=== PATIENT | female | born 1980 | race Caucasian/White ===

== ENCOUNTER 2017-04-04 20:16 | Emergency (ER) | payer MEDICAID ==
[~2017-04-04] VITALS: Ht 162.6 cm; Wt 103.2 kg
[~2017-04-04 20:16] MED LIST: ALBUTEROL0.09 MG/A1 IH; ALPRAZOLAM; AUGMENTIN 875 M1 TAB PO; BACTRIM DS 8001 TAB PO; CEPHALEXIN500 M1 PO; CHANTIX0.5 MG PO; CHANTIX1 MG PO; COMBIVENT INH14.7 GM IH; LEVAQUIN 5500 MG/TAB PO; LORTAB 5/500 501 TAB PO; LORTAB 7.5/5001 TAB; LORTAB 7.5/5001 TAB PO; MVI; NEXIUM40 MG PO; NORCO 325 MG-51 TAB; NORCO 325 MG-51 TAB PO; NORMODYNE100 MG PO; NORMODYNE200 MG PO; NOVOLOG100 U/ML IV; PERCOCET 325 MG1 TA2 PO; PERCOCET 325 MG1 TAB PO; PERCOCET 5/321 UDTAB PO; PERCOCET 650 MG1 TAB PO; PHENERGAN 25 TA25 MG PO; PRENATAL VITAMI1 TA5 PO; PREVACID 30MG30 MG PO; TYLENOL #3 301 UDTAB PO; TYLENOL 500MG500 MG PO; TYLENOL/CODEINE1 ML PO; ZANTAC 150150 MG PO; ZITHROMAX TRI-500 MG PO
[2017-04-04 20:18] VITALS: TEMP 99
[2017-04-04 20:56] LABS: COLLECTION METHOD CLEAN CATCH
[2017-04-04 20:58] LABS: BASO # 0.1 (0.0-0.2); BASO % 0.5 % (0.0-2.0); EOS # 0.3 (0.0-0.7); EOS % 2.4 % (0-4.0); GRAN # 6.2 (1.4-6.5); GRAN % 54.6 % (42.2-75.2); HEMOGLOBIN 13.3 g/dl (12.5-16.0); LYMPH # 3.9 (1.2-3.4); LYMPH % 34.4 % (20.0-51.0); MEAN CELL VOLUME 86 fl (80.0-100.0); MEAN CORPUSCULAR HEMOGLOBIN 29 pg (27.0-31.0); MEAN CORPUSCULAR HGB CONC 33 g/dl (33.0-37.0); MEAN PLATELET VOLUME 8.7 fl (7.4-10.4); MONO # 0.9 (0.1-0.6); MONO % 7.7 % (1.7-9.3); PLATELET COUNT 421 K/mm3 (130-400); RED BLOOD COUNT 4.67 M/mm3 (4.10-5.30); REDCELL DISTRIBUTION WIDTH-CV 13.1 % (11.5-14.5)
[2017-04-04 21:09] LABS: MUCOUS Present /lpf; PH 6 (5-8); SQUAMOUS EPITHELIAL 0-2 /hpf; URINE APPEARANCE Hazy; URINE BACTERIA Many /hpf; URINE BILIRUBIN Negative (NEGATIVE); URINE BLOOD 1+ (NEGATIVE); URINE COLOR Yellow; URINE GLUCOSE Negative (NEGATIVE); URINE KETONE Negative (NEGATIVE); URINE LEUKOCYTE ESTERASE Negative (NEGATIVE); URINE NITRATE Positive (NEGATIVE); URINE PROTEIN(semi-quant) Negative (NEGATIVE); URINE RBC 0-2 /hpf; URINE UROBILINOGEN Negative (NEGATIVE)
[2017-04-04 21:10] LABS: ALBUMIN 4.1 gm/dL (3.5-5.0); BILIRUBIN,TOTAL 0.2 mg/dL (0.0-1.0); CALCIUM 9.3 mg/dL (8.4-10.2); CREATININE, serum 1.03 mg/dL (0.52-1.25); POTASSIUM 3.9 mmol/L (3.4-5.0); TOTAL PROTEIN 7.2 gm/dL (6.4-8.2)
[2017-04-04] MEDS ORDERED: NORCO 325 MG-51 TAB PO (22:15)
[2017-04-04] MEDS ORDERED: CEFTIN 250250 MG/TAB PO (22:15)
[2017-04-04 22:22] VITALS: BP 156/87; PULSE 80
== END 2017-04-04 22:34 | disposition home or self-care (01) ==
LOC: COL.ER 20:16
PROVIDERS: Nurse Practitioner
DX: N12 Tubulo-interstitial nephritis, not specified as acute or chronic (principal); G43.909 Migraine, unspecified, not intractable, without status migrainosus; I10 Essential (primary) hypertension; F17.210 Nicotine dependence, cigarettes, uncomplicated; Z90.49 Acquired absence of other specified parts of digestive tract; Z98.51 Tubal ligation status; Z87.442 Personal history of urinary calculi
CPT/HCPCS: J1170; J1885; J2405; J7030

== ENCOUNTER 2017-08-10 10:34 | Emergency (ER) | payer MEDICAID ==
[~2017-08-10] VITALS: Ht 167.6 cm; Wt 120.5 kg
[~2017-08-10 10:34] MED LIST changes: +CEFTIN 250250 MG/TAB PO
[2017-08-10 10:43] VITALS: TEMP 98.1
[2017-08-10 11:44] LABS: COLLECTION METHOD CLEAN CATCH
[2017-08-10 11:54] LABS: MUCOUS Present /lpf; PH 5 (5-8); SQUAMOUS EPITHELIAL 0-2 /hpf; URINE APPEARANCE Clear; URINE BACTERIA None Seen /hpf; URINE BILIRUBIN Negative (NEGATIVE); URINE BLOOD 3+ (NEGATIVE); URINE COLOR Straw; URINE GLUCOSE Negative (NEGATIVE); URINE KETONE Negative (NEGATIVE); URINE LEUKOCYTE ESTERASE Negative (NEGATIVE); URINE NITRATE Negative (NEGATIVE); URINE PROTEIN(semi-quant) Negative (NEGATIVE); URINE RBC 0-2 /hpf; URINE UROBILINOGEN Negative (NEGATIVE)
[2017-08-10] MEDS ORDERED: NORCO 325 MG-51 TAB PO (12:29)
[2017-08-10 12:54] VITALS: BP 134/82; PULSE 83
== END 2017-08-10 14:04 | disposition home or self-care (01) ==
LOC: COL.ER 10:34
PROVIDERS: Physician Assistant
DX: S20.212A Contusion of left front wall of thorax, initial encounter (principal); S39.012A Strain of muscle, fascia and tendon of lower back, initial encounter; S96.912A Strain of unspecified muscle and tendon at ankle and foot level, left foot, initial encounter; F32.9 Major depressive disorder, single episode, unspecified; F41.9 Anxiety disorder, unspecified; F43.10 Post-traumatic stress disorder, unspecified; F17.210 Nicotine dependence, cigarettes, uncomplicated; F12.90 Cannabis use, unspecified, uncomplicated; Z98.51 Tubal ligation status; Z98.890 Other specified postprocedural states; W18.39XA Other fall on same level, initial encounter
CPT/HCPCS: J1885

== ENCOUNTER 2017-11-02 18:21 | Emergency (ER) | payer SELFPAY ==
[~2017-11-02] VITALS: Ht 162.6 cm; Wt 113.6 kg
[2017-11-02 18:28] VITALS: TEMP 99
[2017-11-02 19:00] LABS: BASO # 0.1 (0.0-0.2); BASO % 0.6 % (0.0-2.0); EOS # 0.5 (0.0-0.7); EOS % 4.6 % (0-4.0); GRAN # 6.2 (1.4-6.5); HEMATOCRIT 37.8 % (37.0-47.0); HEMOGLOBIN 12.5 g/dl (12.5-16.0); LYMPH # 2.9 (1.2-3.4); LYMPH % 27.3 % (20.0-51.0); MEAN CELL VOLUME 85 fl (80.0-100.0); MEAN CORPUSCULAR HEMOGLOBIN 28 pg (27.0-31.0); MEAN CORPUSCULAR HGB CONC 33 g/dl (33.0-37.0); MEAN PLATELET VOLUME 8.9 fl (7.4-10.4); MONO # 0.9 (0.1-0.6); MONO % 8.1 % (1.7-9.3); PLATELET COUNT 393 K/mm3 (130-400); RED BLOOD COUNT 4.47 M/mm3 (4.10-5.30); REDCELL DISTRIBUTION WIDTH-CV 13.4 % (11.5-14.5)
[2017-11-02 19:14] LABS: ALBUMIN 4.2 gm/dL (3.5-5.0); BILIRUBIN,TOTAL 0.3 mg/dL (0.0-1.0); C-REACTIVE PROTEIN 0.8 mg/dL (0.0-0.9); CREATININE, serum 0.79 mg/dL (0.52-1.25); POTASSIUM 3.6 mmol/L (3.4-5.0); TOTAL PROTEIN 7.5 gm/dL (6.4-8.2)
[2017-11-02] MEDS ORDERED: BACTRIM DS 8001 TAB PO (21:30)
[2017-11-02] MEDS ORDERED: CEPHALEXIN500 M1 PO (21:30)
[2017-11-02 22:23] VITALS: BP 156/77; PULSE 92
== END 2017-11-02 21:50 | disposition home or self-care (01) ==
LOC: COL.ER 18:21
PROVIDERS: Emergency Medicine
DX: R51 Headache (principal); L03.211 Cellulitis of face; L02.01 Cutaneous abscess of face; F17.210 Nicotine dependence, cigarettes, uncomplicated; F12.90 Cannabis use, unspecified, uncomplicated; Z90.49 Acquired absence of other specified parts of digestive tract
CPT/HCPCS: J1170; J1885; J2405; J7030

== ENCOUNTER 2018-02-01 23:59 | Emergency (ER) | payer MEDICAID ==
[~2018-02-01] VITALS: Ht 162.6 cm; Wt 104.5 kg
[2018-02-02 00:05] VITALS: TEMP 98.5
[2018-02-02 00:54] LABS: BASO # 0.1 (0.0-0.2); BASO % 0.3 % (0.0-2.0); EOS # 0.2 (0.0-0.7); EOS % 0.9 % (0-4.0); GRAN # 11.5 (1.4-6.5); HEMATOCRIT 41.3 % (37.0-47.0); HEMOGLOBIN 14.1 g/dl (12.5-16.0); LYMPH # 3.7 (1.2-3.4); LYMPH % 22.3 % (20.0-51.0); MEAN CELL VOLUME 84 fl (80.0-100.0); MEAN CORPUSCULAR HEMOGLOBIN 29 pg (27.0-31.0); MEAN CORPUSCULAR HGB CONC 34 g/dl (33.0-37.0); MEAN PLATELET VOLUME 8.9 fl (7.4-10.4); MONO % 6.1 % (1.7-9.3); PLATELET COUNT 380 K/mm3 (130-400); REDCELL DISTRIBUTION WIDTH-CV 13.1 % (11.5-14.5)
[2018-02-02 01:07] LABS: ALANINE AMINOTRANSFERASE 30 U/L (9-52); ALBUMIN 4.3 gm/dL (3.5-5.0); ALKALINE PHOSPHATASE 94 U/L (50-136); ANION GAP 8 mmol/L (7-16); AST,SGOT 21 U/L (15-37); BILIRUBIN,TOTAL 0.2 mg/dL (0.0-1.0); BLOOD UREA NITROGEN 17 mg/dL (7-17); CALCIUM 9.8 mg/dL (8.4-10.2); CARBON DIOXIDE 26 mmol/L (22-30); CHLORIDE 107 mmol/L (98-107); CREATININE, serum 0.82 mg/dL (0.52-1.25); GLUCOSE 111 mg/dL (74-106); LIPASE 94 U/L (23-300); MAGNESIUM 1.8 mg/dL (1.6-2.3); PHOSPHOROUS 4.4 mg/dL (2.5-4.5); POTASSIUM 3.9 mmol/L (3.4-5.0); SODIUM 141 mmol/L (137-145); TOTAL PROTEIN 7.6 gm/dL (6.4-8.2)
[2018-02-02 01:18] LABS: TROPONIN-I < 0.012 ng/mL (0.000-0.034)
[2018-02-02 01:21] LABS: COLLECTION METHOD CLEAN CATCH
[2018-02-02 01:30] LABS: MUCOUS Present /lpf; PH 5 (5-8); URINE APPEARANCE Hazy; URINE BACTERIA None Seen /hpf; URINE BILIRUBIN Negative (NEGATIVE); URINE BLOOD 2+ (NEGATIVE); URINE COLOR Yellow; URINE GLUCOSE Negative (NEGATIVE); URINE KETONE Negative (NEGATIVE); URINE LEUKOCYTE ESTERASE Trace (NEGATIVE); URINE NITRATE Negative (NEGATIVE); URINE PROTEIN(semi-quant) Negative (NEGATIVE)
[2018-02-02] MEDS ORDERED: FLEXERIL 1010 MG/TAB PO (03:11)
[2018-02-02] MEDS ORDERED: DOXYCYCLINE 10100 MG PO (03:11)
[2018-02-02 03:28] VITALS: BP 101/55; PULSE 92
== END 2018-02-02 03:37 | disposition home or self-care (01) ==
LOC: COL.ER 23:59
PROVIDERS: Emergency Medicine
DX: J40 Bronchitis, not specified as acute or chronic (principal); R07.89 Other chest pain; Z90.49 Acquired absence of other specified parts of digestive tract; F17.210 Nicotine dependence, cigarettes, uncomplicated
CPT/HCPCS: J1100; J1170; J1885; J7030; Q9967

== ENCOUNTER 2018-09-03 21:43 | Emergency (ER) | payer MEDICAID ==
[~2018-09-03] VITALS: Ht 162.6 cm; Wt 107.3 kg
[~2018-09-03 21:43] MED LIST changes: +DOXYCYCLINE 10100 MG PO; +FLEXERIL 1010 MG/TAB PO
[2018-09-03 21:47] VITALS: TEMP 98.5
[2018-09-03] MEDS ORDERED: NAPROSYN500 MG PO (23:45)
[2018-09-04 00:07] VITALS: BP 155/72; PULSE 83
== END 2018-09-04 00:07 | disposition home or self-care (01) ==
LOC: COL.ER 21:43
DX: M65.841 Other synovitis and tenosynovitis, right hand (principal); I10 Essential (primary) hypertension; F17.210 Nicotine dependence, cigarettes, uncomplicated
CPT/HCPCS: J1885

== ENCOUNTER 2018-10-12 12:05 | Day surgery (SDC) | payer MEDICAID ==
[~2018-10-12] VITALS: Ht 162.7 cm; Wt 180.3 kg
[2018-10-12] VITALS (9 sets, daily range): BP systolic 130–160; BP diastolic 70–95; PULSE 72–85; TEMP 98
[~2018-10-12 12:05] MED LIST changes: +NAPROSYN500 MG PO
[2018-10-12 12:37] LABS: HEMOGLOBIN 12.3 g/dl (12.5-16.0); MEAN CELL VOLUME 85 fl (80.0-100.0); MEAN CORPUSCULAR HEMOGLOBIN 29 pg (27.0-31.0); MEAN CORPUSCULAR HGB CONC 34 g/dl (33.0-37.0); MEAN PLATELET VOLUME 8.8 fl (7.4-10.4); PLATELET COUNT 358 K/mm3 (130-400); RED BLOOD COUNT 4.27 M/mm3 (4.10-5.30); REDCELL DISTRIBUTION WIDTH-CV 12.7 % (11.5-14.5)
[2018-10-12 12:41] LABS: HEMATOCRIT 36.1 % (37.0-47.0)
[2018-10-12 12:43] LABS: PROTHROMBIN TIME 11.5 SECONDS (9.7-12.8)
[2018-10-12 12:47] LABS: CALCIUM 9.1 mg/dL (8.4-10.2); CREATININE, serum 0.84 (0.52-1.25); POTASSIUM 3.7 mmol/L (3.4-5.0)
--- NOTE | 2018-10-12 13:13 | NUR ---
SEE MERGE DOCUMENTATION FOR MEDICATION ADMINISTRATION TIMES AND INTRA/POST PROCEDURE SEDATION ASSESSMENTS. PT AND PT STATE NO INTERVENTION TO BE DONE TODAY REGARDLESS OF FINDINGS. WISHES TO BE NOTIFIED IMMEDIATELY. WILL RELAY THIS TO .
--- NOTE | 2018-10-12 14:26 | NUR ---
Back from [employer]. Drowsy but oriented. VSS. Right Tband 13 cc air , good pulses and cap refill < 3 secs. Family bedside
[2018-10-12] MEDS ORDERED: TOPROL XL 50MG50 MG PO (14:53)
[2018-10-12] MEDS ORDERED: ASPIRIN E.C. 8181 MG PO (14:56)
--- NOTE | 2018-10-12 16:42 | NUR ---
Ambulated to bathroom with steady gait. Deflated Tband of 13 cc air over 20 minutes. Pressure dressing applied. IV discontinued intact.
--- NOTE | 2018-10-12 17:06 | NUR ---
Discharge instructions given. Transferred to private car by simon
== END 2018-10-12 17:07 | disposition home or self-care (01) ==
LOC: COL.CAR 12:05
PROVIDERS: Internal Medicine Cardiovascular Disease
DX: R07.89 Other chest pain (principal); I25.110 Atherosclerotic heart disease of native coronary artery with unstable angina pectoris; I35.1 Nonrheumatic aortic (valve) insufficiency; J45.909 Unspecified asthma, uncomplicated; F41.9 Anxiety disorder, unspecified; F32.9 Major depressive disorder, single episode, unspecified; Z98.890 Other specified postprocedural states; Z86.32 Personal history of gestational diabetes; I10 Essential (primary) hypertension; Z86.14 Personal history of Methicillin resistant Staphylococcus aureus infection; Z86.73 Personal history of transient ischemic attack (TIA), and cerebral infarction without residual deficits; Z90.49 Acquired absence of other specified parts of digestive tract; F43.10 Post-traumatic stress disorder, unspecified; Z98.51 Tubal ligation status; F17.210 Nicotine dependence, cigarettes, uncomplicated; Z79.899 Other long term (current) drug therapy; Z87.74 Personal history of (corrected) congenital malformations of heart and circulatory system; Z83.3 Family history of diabetes mellitus; Z82.49 Family history of ischemic heart disease and other diseases of the circulatory system; Z82.61 Family history of arthritis; R01.1 Cardiac murmur, unspecified
CPT/HCPCS: C1769; J1644; J2250; J3010; Q9967

== ENCOUNTER 2018-12-02 08:57 | Emergency (ER) | payer SELFPAY ==
[~2018-12-02] VITALS: Ht 162.6 cm; Wt 104.5 kg
[~2018-12-02 08:57] MED LIST changes: +ASPIRIN E.C. 8181 MG PO; +TOPROL XL 50MG50 MG PO
[2018-12-02 09:04] VITALS: TEMP 98
[2018-12-02 09:34] LABS: COLLECTION METHOD CLEAN CATCH
[2018-12-02 09:49] LABS: BASO % 0.4 % (0.0-2.0); EOS # 0.3 (0.0-0.7); EOS % 2.5 % (0-4.0); GRAN % 67.5 % (42.2-75.2); HEMATOCRIT 39.9 % (37.0-47.0); HEMOGLOBIN 13.4 g/dl (12.5-16.0); LYMPH # 2.4 (1.2-3.4); LYMPH % 22.8 % (20.0-51.0); MEAN CELL VOLUME 86 fl (80.0-100.0); MEAN CORPUSCULAR HEMOGLOBIN 29 pg (27.0-31.0); MEAN CORPUSCULAR HGB CONC 34 g/dl (33.0-37.0); MEAN PLATELET VOLUME 8.8 fl (7.4-10.4); MONO # 0.7 (0.1-0.6); MONO % 6.6 % (1.7-9.3); PLATELET COUNT 365 K/mm3 (130-400); RED BLOOD COUNT 4.66 M/mm3 (4.10-5.30); REDCELL DISTRIBUTION WIDTH-CV 12.8 % (11.5-14.5)
[2018-12-02 09:56] LABS: ALBUMIN 4.3 gm/dL (3.5-5.0); BILIRUBIN,TOTAL 0.1 mg/dL (0.0-1.0); C-REACTIVE PROTEIN 0.6 mg/dL (0.0-0.9); CALCIUM 9.1 mg/dL (8.4-10.2); CREATININE, serum 0.85 (0.52-1.25); POTASSIUM 4.1 mmol/L (3.4-5.0); TOTAL PROTEIN 7.3 gm/dL (6.4-8.2)
[2018-12-02 10:03] LABS: PH 5 (5-8); SQUAMOUS EPITHELIAL 0-2 /hpf; URINE APPEARANCE Hazy; URINE BACTERIA None Seen /hpf; URINE BILIRUBIN Negative (NEGATIVE); URINE BLOOD 3+ (NEGATIVE); URINE COLOR Yellow; URINE GLUCOSE Negative (NEGATIVE); URINE KETONE Negative (NEGATIVE); URINE LEUKOCYTE ESTERASE Trace (NEGATIVE); URINE NITRATE Positive (NEGATIVE); URINE PROTEIN(semi-quant) 1+ (NEGATIVE); URINE RBC >50 /hpf; URINE UROBILINOGEN Negative (NEGATIVE)
[2018-12-02] MEDS ORDERED: NORCO 325 MG-51 TAB PO (12:21)
[2018-12-02] MEDS ORDERED: CEPHALEXIN500 M1 PO (12:21)
[2018-12-02 13:10] VITALS: BP 120/65; PULSE 85
== END 2018-12-02 13:06 | disposition home or self-care (01) ==
LOC: COL.ER 08:57
PROVIDERS: Physician Assistant
DX: N39.0 Urinary tract infection, site not specified (principal); F17.210 Nicotine dependence, cigarettes, uncomplicated; Z98.51 Tubal ligation status; Z98.890 Other specified postprocedural states; Z90.89 Acquired absence of other organs
CPT/HCPCS: J1885; J2270; J2405; J7030; Q9967

== ENCOUNTER 2019-12-16 17:40 | Emergency (ER) | payer MEDICAID ==
[~2019-12-16] VITALS: Ht 162.6 cm; Wt 95.5 kg
[2019-12-16 18:11] VITALS: TEMP 97.3
[2019-12-16] MEDS ORDERED: AMOXICILLIN 8751 TAB PO (19:08)
[2019-12-16 20:18] VITALS: BP 137/88; PULSE 91
== END 2019-12-16 20:19 | disposition home or self-care (01) ==
LOC: COL.ER 17:40
DX: K02.9 Dental caries, unspecified (principal)
CPT/HCPCS: J1200; J2765

== ENCOUNTER 2020-09-10 15:29 | Emergency (ER) | payer MEDICAID ==
[~2020-09-10] VITALS: Ht 162.6 cm; Wt 104.5 kg
[~2020-09-10 15:29] MED LIST changes: +AMOXICILLIN 8751 TAB PO
[2020-09-10 15:57] VITALS: TEMP 97.9
[2020-09-10 17:08] VITALS: BP 168/90; PULSE 85
== END 2020-09-10 17:31 | disposition home or self-care (01) ==
LOC: COL.ER 15:29
DX: S63.502A Unspecified sprain of left wrist, initial encounter (principal); X50.3XXA Overexertion from repetitive movements, initial encounter; Y92.59 Other trade areas as the place of occurrence of the external cause; Y99.0 Civilian activity done for income or pay
CPT/HCPCS: J1885

== ENCOUNTER 2021-11-05 07:01 | Outpatient (CLI) | payer MEDICAID ==
[~2021-11-05] VITALS: Ht 162.7 cm; Wt 112.6 kg
[2021-11-05 08:07] LABS: BASO % 0.5 % (0.0-2.0); EOS # 0.2 K/mm3 (0.0-0.7); EOS % 2.2 % (0.0-4.0); GRAN # 4.6 K/mm3 (1.4-6.5); GRAN % 56.2 % (42.2-75.2); HEMATOCRIT 37.5 % (37.0-47.0); HEMOGLOBIN 12.4 g/dl (12.5-16.0); LYMPH # 2.7 K/mm3 (1.2-3.4); LYMPH % 32.7 % (20.0-51.0); MEAN CELL VOLUME 86 fl (80.0-100.0); MEAN CORPUSCULAR HEMOGLOBIN 28 pg (27-31); MEAN CORPUSCULAR HGB CONC 33 g/dl (33.0-37.0); MEAN PLATELET VOLUME 8.5 fl (7.4-10.4); MONO # 0.7 K/mm3 (0.1-0.6); PLATELET COUNT 347 K/mm3 (130-400); RED BLOOD COUNT 4.36 M/mm3 (4.10-5.30)
[2021-11-05 08:21] LABS: PROTHROMBIN TIME 11.7 SECONDS (9.7-12.8)
[2021-11-05 08:26] LABS: CALCIUM 9.4 mg/dL (8.4-10.2); CREATININE, serum 1.01 mg/dL (0.57-1.11); POTASSIUM 4.2 mmol/L (3.5-4.5)
[2021-11-05] MEDS ORDERED: TOPROL XL 25MG25 MG PO (08:29)
[2021-11-05] MEDS ORDERED: LASIX 20MG TABL20 MG PO (08:30)
[2021-11-05] MEDS ORDERED: K-DUR 10 MEQ T10 MEQ PO (08:30)
[2021-11-05 08:33] VITALS: BP 148/90; PULSE 78; TEMP 98.2
[2021-11-05 09:27] VITALS: BP 127/71; PULSE 83
[2021-11-05 09:30] VITALS: BP 136/80; PULSE 79
--- NOTE | 2021-11-05 09:30 | NUR ---
Report from Man Hernandez.
[2021-11-05 09:45] VITALS: BP 152/89; PULSE 78
[2021-11-05] MEDS ORDERED: ASPIRIN E.C. 8181 MG PO (09:56)
[2021-11-05 10:00] VITALS: BP 141/85; PULSE 77
[2021-11-05 10:15] VITALS: BP 154/92; PULSE 78
--- NOTE | 2021-11-05 10:28 | NUR ---
Discharge instructions given to pt.Pt verbalizes understanding.
--- NOTE | 2021-11-05 10:45 | NUR ---
Pt escorted out via wheelchair by this nurse.
== END 2021-11-05 11:16 ==
LOC: COL.RAD 07:01
PROVIDERS: Internal Medicine Cardiovascular Disease
DX: I35.0 Nonrheumatic aortic (valve) stenosis (principal)
CPT/HCPCS: J2704

== ENCOUNTER 2023-04-15 12:55 | Emergency (ER) | payer OTHER ==
[~2023-04-15] VITALS: Ht 162.6 cm; Wt 113.6 kg
[~2023-04-15 12:55] MED LIST changes: +K-DUR 10 MEQ T10 MEQ PO; +LASIX 20MG TABL20 MG PO; +TOPROL XL 25MG25 MG PO
[2023-04-15] MEDS ORDERED: ZOFRAN ODT4 MG PO (14:04)
[2023-04-15] MEDS ORDERED: NORCO 325 MG-51 TAB PO (14:04)
[2023-04-15 14:31] VITALS: BP 202/100; PULSE 110; TEMP 98.5
== END 2023-04-15 14:35 | disposition home or self-care (01) ==
LOC: COL.ER 12:55
DX: S61.217A Laceration without foreign body of left little finger without damage to nail, initial encounter (principal); W26.0XXA Contact with knife, initial encounter

== ENCOUNTER 2023-06-10 12:45 | Outpatient (RCR) | payer OTHER ==
[~2023-06-10 12:45] MED LIST changes: +ZOFRAN ODT4 MG PO
== END 2023-06-13 | disposition home or self-care (01) ==
LOC: WSPT
DX: M25.512 Pain in left shoulder (principal)
CPT/HCPCS: G0283-GP

== ENCOUNTER 2023-11-01 22:39 | Emergency (ER) | payer OTHER ==
[~2023-11-01] VITALS: Ht 162.6 cm; Wt 118.2 kg
[2023-11-01 22:51] VITALS: TEMP 98.5
[2023-11-02 01:15] LABS: COLLECTION METHOD CLEAN CATCH
[2023-11-02] MEDS ORDERED: NS 1,000 ML IV ONE (01:15)
[2023-11-02] MEDS ORDERED: HYDROmorphone 0.5 MG/0.5 ML SYRINGE IV ONE (01:15)
[2023-11-02] MEDS ORDERED: Ondansetron 4 MG/2 ML VIAL IV ONE (01:15)
[2023-11-02 01:17] LABS: BASO # 0.1 K/mm3 (0.0-0.2); BASO % 0.6 % (0.0-2.0); EOS # 0.4 K/mm3 (0.0-0.7); EOS % 3.5 % (0.0-4.0); GRAN # 5.2 K/mm3 (1.4-6.5); GRAN % 50.5 % (42.2-75.2); HEMATOCRIT 41.8 % (37.0-47.0); HEMOGLOBIN 13.7 g/dl (12.5-16.0); LYMPH # 3.7 K/mm3 (1.2-3.4); LYMPH % 36.1 % (20.0-51.0); MEAN CELL VOLUME 86 fl (80.0-100.0); MEAN CORPUSCULAR HEMOGLOBIN 28 pg (27-31); MEAN CORPUSCULAR HGB CONC 33 g/dl (33.0-37.0); MEAN PLATELET VOLUME 8.5 fl (7.4-10.4); MONO # 0.9 K/mm3 (0.1-0.6); PLATELET COUNT 368 K/mm3 (130-400); RED BLOOD COUNT 4.86 M/mm3 (4.10-5.30); REDCELL DISTRIBUTION WIDTH-CV 13.1 % (11.5-14.5)
[2023-11-02 01:25] LABS: URINE APPEARANCE CLEAR (CLEAR/HAZY); URINE BLOOD 1+ (NEGATIVE); URINE COLOR Dark Yellow (YELLOW); URINE GLUCOSE NEGATIVE (NEGATIVE); URINE KETONE TRACE (NEGATIVE); URINE NITRATE POSITIVE (NEGATIVE); URINE PROTEIN(semi-quant) NEGATIVE (NEGATIVE)
[2023-11-02 01:36] LABS: C-REACTIVE PROTEIN 0.25 mg/dL (0.00-0.50); CALCIUM 9.8 mg/dL (8.4-10.2); CREATININE, serum 0.91 mg/dL (0.57-1.11); POTASSIUM 3.8 mEq/L (3.5-4.5); TOTAL PROTEIN 7.5 g/dl (6.2-8.1)
[2023-11-02 01:48] LABS: MUCOUS PRESENT (NOT PRESENT); SQUAMOUS EPITHELIAL 20-50 /hpf (0-10); URINE BACTERIA MANY /hpf (NONE SEEN); URINE CALCIUM OXALATE CRYSTAL PRESENT (NOT PRESENT); URINE RBC 0-2 /hpf (0-2); URINE WBC 0-2 /hpf (0-2)
[2023-11-02 01:52] LABS: BILIRUBIN,TOTAL 0.3 mg/dL (0.2-1.2)
[2023-11-02] MEDS ORDERED: Iohexol 300 - 100 ML VIAL IV ONE (02:00)
[2023-11-02] MEDS ORDERED: NS 50 ML IV SCH (02:01)
[2023-11-02] MEDS ORDERED: CEPHALEXIN500 M1 PO (03:09)
[2023-11-02] MEDS ORDERED: Cephalexin 500 MG CAP PO ONE (03:15)
[2023-11-02 03:38] VITALS: BP 129/76; PULSE 81
== END 2023-11-02 03:38 | disposition home or self-care (01) ==
LOC: COL.ER 22:39
PROVIDERS: Nurse Practitioner
DX: N39.0 Urinary tract infection, site not specified (principal); F17.290 Nicotine dependence, other tobacco product, uncomplicated
CPT/HCPCS: J1170; J2405; J7030; Q9967